=== PATIENT | male | born 1985 | race Caucasian/White ===

== ENCOUNTER → 2020-04-21 12:50 | Outpatient (BNVA) | payer MEDICAID, SELFPAY | PROVIDERS: Visit Provider Psychiatry & Neurology Psychiatry | DX: F25.0 Schizoaffective disorder, bipolar type (principal); F41.9 Anxiety disorder, unspecified; Z72.820 Sleep deprivation; F11.19 Opioid abuse with unspecified opioid-induced disorder; F15.20 Other stimulant dependence, uncomplicated | CPT/HCPCS: 90792 ==

== ENCOUNTER → 2020-04-23 14:39 | Outpatient (BNVA) | payer MEDICAID, SELFPAY | PROVIDERS: Visit Provider Internal Medicine | DX: E10.319 Type 1 diabetes mellitus with unspecified diabetic retinopathy without macular edema (principal); E10.40 Type 1 diabetes mellitus with diabetic neuropathy, unspecified; E10.65 Type 1 diabetes mellitus with hyperglycemia; Z79.4 Long term (current) use of insulin; E16.0 Drug-induced hypoglycemia without coma; T38.3X5A Adverse effect of insulin and oral hypoglycemic [antidiabetic] drugs, initial encounter; E78.5 Hyperlipidemia, unspecified | CPT/HCPCS: 99204 ==

== ENCOUNTER 2020-04-23 15:34 | Outpatient (CLI) | payer MEDICAID, SELFPAY ==
[2020-04-23 16:27] LABS: Alanine Aminotransferase 38 U/L (0-41); Albumin Level 4.4 g/dL (3.5-5.2); Alkaline Phosphatase 60 IU/L (40-130); Aspartate Amino Transferase 27 U/L (0-40); Blood Urea Nitrogen 20 mg/dL (6-20); Calcium 9.4 mg/dL (8.5-10.5); Carbon Dioxide 27 mmol/L (22-29); Chloride 99 mmol/L (98-107); Chol HDL Ratio 6.76 mg/dL (1.0-5.00); Cholesterol 257 mg/dL (0-200); Globulin 2.9 g/dL (1.3-4.6); Glomerular Filtration Rate 68.5 mL/min (90-130); Glucose 320 mg/dL (65-115); HDL Cholesterol 38 mg/dL (60-100); LDL Cholesterol Calculated 156 mg/dL (50-129); LDL HDL Ratio 4.11 RATIO (0.00-3.22); Osmolality Calculated 293 mOsm/kg (285-295); Sodium 134 mmol/L (136-145); Total Bilirubin 0.4 mg/dL (0.15-1.2); Total Protein 7.3 g/dL (6.6-8.7); Triglycerides 314 mg/dL (0-150)
[2020-04-23 16:32] LABS: Anion Gap 12.7 (5-19); Potassium 4.7 mmol/L (3.5-5.1)
[2020-04-23 16:42] LABS: Estmated Average Glucose 206; Hemoglobin A1C 8.8 % (4.0-6.0)
== END 2020-04-23 15:35 | disposition home or self-care (01) ==
LOC: LAB 15:40
PROVIDERS: PCP Family Medicine Adult Medicine; Visit Provider Internal Medicine
DX: E10.65 Type 1 diabetes mellitus with hyperglycemia (principal); E10.69 Type 1 diabetes mellitus with other specified complication; E78.5 Hyperlipidemia, unspecified
CPT/HCPCS: 36415; 80053; 80061; 83036

== ENCOUNTER 2020-04-24 08:06 | Emergency (ER) | payer MEDICAID, SELFPAY ==
--- NOTE | 2020-04-24 08:15 | XR_ITS ---
WS: [id number] Left foot, 3 views, 04/24/2020 Clinical Data: left great toe pain, 1st TP pain Comparison: None. Findings: No fractures or dislocations are seen. No bone destruction or erosion is noted. The joint spaces and soft tissues are normal. XR/XR foot LT min 3V* [id number] Impression: Negative left foot.
--- NOTE | 2020-04-24 08:17 | W.ED.LOWEXIN ---
HPI - Extremity Injury (Lower) General: Chief Complaint: Extremity Injury, Lower Stated Complaint: TOE PAIN Time Seen by Provider: 04/24/20 08:09 History of Present Illness: HPI Narrative: 34-year-old male patient presents to the emergency department with left great toe injury. He reports last night, attempted to kick in a corn out of the way when he kicked the pavement. He reports left great toe pain, blue discoloration to the nail, he is insulin-dependent diabetic with peripheral neuropathy. He reports pain with ambulation. MD complaint: foot injury (left) Onset (ago): hour(s) (12) Injury: Left: toes Place: home and other (Currently living at [facility]) Severity: moderate Severity scale (1-10): 5 Relieving factors: rest Exacerbating factors: weight bearing and movement Context: direct blow Other symptoms: none Review of Systems General: Reports: 10 or more systems reviewed and unremarkable except in HPI and below Const: Denies: fever(s), chills or diaphoresis Eyes: Denies: blurry vision or eye redness ENMT: Denies: throat pain, dental pain or disequilibrium Card: Denies: chest pain, palpitations or irregular heart rhythm Resp: Denies: dyspnea, productive cough, non-productive cough or wheezing GI: Denies: abdominal pain, nausea or vomiting : Denies: dysuria Musc: Denies: back pain Skin/Breast: Reports: skin tenderness (left great toe) and changes in skin color (left great toe); Denies: rash or pruritus Neuro: Denies: headache(s), weakness in extremities or behavioral changes Benigno/Lymph: Denies: easy bruising FOR[facility], [facility] ED PFSH: Medical History (Updated 04/24/20 @ 08:22 by YI Nunn) Bipolar affective, depress, unspec Chronic back pain Diabetes mellitus type 1, uncontrolled, insulin dependent Diabetes, type I Diabetic neuropathic arthropathy Fatty liver Heroin overdose 05/2018 Herpes exposure Hyperlipidemia due to type 1 diabetes mellitus Insomnia Methamphetamine abuse, episodic 07/2018 Methamphetamine use disorder, severe Opioid abuse with opioid-induced disorder Problems related to lack of adequate sleep Schizoaffective disorder, bipolar type Staph skin infection 09/2018 Tobacco abuse disorder Surgical History Hx of appendectomy Hx of hernia repair Family History Other COPD (chronic obstructive pulmonary disease) Cancer Diabetes Psychiatric illness Social History Smoking and tobacco status: current every day smoker cigarettes Years cigarettes smoked: 24 [ Other cigarette details: currently smoking 3 cigarettes a day. former 4 PPD. ] Second hand smoke exposure: Yes Alcohol intake: never Counseling given: Yes Adopted: No Caregiver/support person: Yes Lives independently: Yes Housing: Homeless Current occupational status: unemployed Current gender identity: Male Special melissa needs: No Physical Exam Const: COMMON NORMALS: no acute distress, patient oriented x3, healthy appearing and alert GENERAL APPEARANCE: cooperative, comfortable and well hydrated HENMT: COMMON NORMALS: normocephalic, Normal external nose present and moist oral mucous membranes HEAD & SCALP: normocephalic NOSE: Normal external nose present Eye: COMMON NORMALS: Equal, round and reactive pupils present and EOMs intact bilaterally GENERAL EYE: appearance normal, both eyes and all related structures PUPIL: Yes Equal, round and reactive pupils present Neck/C-Spine: COMMON NORMALS: full ROM and no lymphadenopathy GENERAL: Yes normal visual inspection and Yes trachea midline CERVICAL SPINE: Yes cervical ROM normal Lymph: LYMPHATIC: no lymphadenopathy noted Chest: COMMONS NORMALS: normal inspection of the chest Resp: COMMON NORMALS: normal respiratory effort and clear to auscultation bilaterally AUSCULTATION: clear to auscultation bilaterally Cardio: COMMON NORMALS: regular rhythm, S1 normal heart sound present and S2 normal heart sound present RHYTHM: regular rhythm HEART SOUNDS: S1 normal heart sound present and S2 normal heart sound present GI: COMMON NORMALS: Soft to palpation and non-tender INSPECTION: Yes normal to inspection PALPATION: Yes Soft to palpation : COMMON NORMALS: Yes no CVA tenderness BLADDER/KIDNEY EXAM: Yes no CVA tenderness Back/Pelvis: COMMON NORMALS: no CVA tenderness and thoracic and lumbar spine normal to inspection Extremity: COMMON NORMALS: capillary refill normal GENERAL: Yes normal exam except as noted LEFT LOWER EXTREMITY: Yes foot & digits Left foot and digits: Yes inspection (edema and swelling to the left great toe), Yes palpation (pain with palpation - no open wounds), Yes ROM (Dorsi flexion and extension noted) and Yes neurovascular exam (Distally intact to the left great toe) EXTREMITY IMAGE (FRONT): 1. Subungual hematoma noted. Nail plate intact, nail intact. Negative drainage Neuro: COMMON NORMALS: patient oriented x3 and no focal motor deficits SENSORIUM/ORIENTATION: Yes alert Psych: COMMON NORMALS: mental status grossly normal, Normal thought process present and cooperative ACTIVITY/MOTOR BEHAVIOR: Yes appropriate eye contact THOUGHT PROCESS: Normal thought process present Skin: COMMON NORMALS: no rashes or lesions noted and turgor normal GENERAL SKIN EXAM: no rashes or lesions noted and turgor normal Procedures Nail Trephination Time out: Yes Location (finger): left Location (toes): first digit Sterile prep: betadine Method of drainage: nail cautery Procedure successful: Yes Patient tolerated procedure: well Complications: other (none) Course ED course: 34-year-old male patient presents to the emergency department with left great toe pain status post contusion injury. Subungual hematoma noted of the left great toe, nail was cauterized, significant amount of blood expressed, this did help with pain, reports toe felt better after procedure, nail was wrapped with Kerlix and bandage. He is requesting note to keep the left foot elevated to help with swelling and pain as he lives at [facility]. X-ray of the left foot was negative for fracture. He will follow-up with podiatry, return to the emergency room if he develops concerning symptoms such as increased redness of the great toe, red streaking, left foot swelling with redness or red streaking appearance. Questions were answered, results of x-ray discussed with the patient as well as plan of care. Vital Signs: Vital signs: Vital Signs Temperature 97.8 F 04/24/20 08:47 Pulse Rate 86 04/24/20 08:48 Respiratory Rate 18 04/24/20 08:47 Blood Pressure 127/88 04/24/20 08:47 Pulse Oximetry 97 04/24/20 08:47 MDM - Extremity Injury (Lower) Imaging Data^: Xray Ortho: Radiologist's impression: [address] [place] [address] XRay Report Signed Patient: [facility] Unit #: [id number] : [id number] Age/Sex: 34 / M ADM Date: 04/24/20 Loc: ER Room/Bed: Attending Dr: Ordering Provider/Ordering MD: Joanne Stratton Date of Service: 04/24/20 Procedure(s): XR foot LT min 3V* [id number] Accession Number(s): [id number] Report Number: [id number] WS: [id number] Left foot, 3 views, 04/24/2020 Clinical Data: left great toe pain, 1st TP pain Comparison: None. Findings: No fractures or dislocations are seen. No bone destruction or erosion is noted. The joint spaces and soft tissues are normal. XR/XR foot LT min 3V* [id number] Impression: Negative left foot. Dictated By: Makayla Emmanuel MD Signed By: Makayla Emmanuel MD Signed Date/Time: 04/24/20839 DD/ 8 Discharge Plan Discharge Patient Disposition: Home Clinical Impression: Subungual hematoma Toe contusion Qualifiers: Encounter type: initial encounter Toe: great toe Damage to nail status: with damage Laterality: left Qualified Code(s): S90.212A - Contusion of left great toe with damage to nail, initial encounter Condition: Stable Prescriptions: No Action hydroxyzine HCl 50 mg tablet 50 mg PO .hs Qty: 30 RF: 1 gabapentin 600 mg tablet 600 mg PO TID Qty: 90 RF: 1 (DME) Diabetic Diet See Rx Instructions .Route .MEDSUPPLY Qty: 1 RF: 0 furosemide 20 mg tablet 10 mg PO QAM Qty: 30 RF: 1 lisinopril 10 mg tablet 10 mg PO DAILY Qty: 30 RF: 1 meloxicam 15 mg tablet 15 mg PO DAILY Qty: 30 RF: 1 venlafaxine 150 mg capsule,extended release 24hr 150 mg PO DAILY Qty: 30 RF: 1 Regular Insulin See Rx Instructions .ROUTE .COMPLEX Qty: 100 RF: 0 hydroxyzine pamoate 50 mg capsule 50 mg PO BID RF: 0 insulin aspart U-100 [Novolog Flexpen U-100 Insulin] 100 unit/mL (3 mL) insulin pen 10 unit SUBCUT TID RF: 0 metoprolol succinate 50 mg tablet extended release 24 hr 50 mg PO DAILY RF: 0 gabapentin 300 mg capsule 300 mg PO DAILY RF: 0 quetiapine 400 mg tablet 400 mg PO .Hs RF: 0 insulin glargine U-300 conc 300 unit/mL (3 mL) insulin pen 60 unit SUBCUT DAILY Qty: 6 RF: 1 venlafaxine 37.5 mg tablet 37.5 mg PO DAILY RF: 0 chlorpromazine 100 mg tablet 100 mg PO TID 30 Days Qty: 90 RF: 3 trazodone 100 mg tablet 200 mg PO .hs 30 Days Qty: 60 RF: 3 Discharge Orders: Discharge Order (Routine); Ordered 04/24/20 Ordered By: Joanne Stratton Referrals: Ryan Bond MD [Primary Care Provider] - Discharge Diet: Usual diet and Diabetic Discharge Activity: Limit activity as instructed Patient Instructions: Subungual Hematoma (ED), Contusion in Adults (ED) Activity Restrictions/Additional Instructions: Follow-up with podiatry as recommended Monitor left great toe for signs and symptoms of infection such as increased redness, increased pain or drainage Keep the left great toe clean and dry, avoid submersion into water, you may change the dressing as needed for drainage Return to the emergency department if you develop redness, foul odor from the toe, red streaking of the left foot, swelling redness of the left foot Wear postop shoe as this will help with pain -wear until follow-up with podiatry Keep the left extremity elevated as this will help with pain and swelling. You may continue Tylenol as needed for pain Stand Alone Forms: Work/School Release Coding Level of Care Code ED [employer] Super[employer] for [employer] Exam Comprehensive
[2020-04-24 08:41] VITALS: BP 127/88; PULSE 99; RESP 18; TEMP 36.6; O2SAT 96; BMI 31.1
[2020-04-24 08:47] VITALS: BP 127/88; PULSE 87; RESP 18; TEMP 36.6; O2SAT 97
[2020-04-24 08:48] VITALS: PULSE 86
[2020-04-24 09:23] VITALS: BP 123/86; PULSE 95; RESP 18; TEMP 36.6; O2SAT 96
--- NOTE | 2020-04-24 10:43 | DCPLANNER ---
a p manager had message to schedule a follow up appointment for patient with ortho. a p manager called the ortho clinic, spoke with Venus, gave clinic patients information. a p manager was told that patients information would be printed and reviewed. Clinic will call patient with appointment information.
--- NOTE | 2020-04-28 16:07 | DCPLANNER ---
Patient has a follow up appointment scheduled for April at 9:[address] Minaya at ortho. Clinic will call patient with appointment information.
--- NOTE | 2020-05-15 11:51 | DCPLANNER ---
Patient had a follow up appointment scheduled for 05.12.20 with ortho - patient did attend appointment.
== END 2020-04-24 09:26 | disposition home or self-care (01) ==
LOC: ER 08:29
PROVIDERS: Emergency Provider Nurse Practitioner Family; PCP Family Medicine Adult Medicine
DX: S90.212A Contusion of left great toe with damage to nail, initial encounter (principal); Z79.899 Other long term (current) drug therapy; E10.40 Type 1 diabetes mellitus with diabetic neuropathy, unspecified; E78.5 Hyperlipidemia, unspecified; F17.210 Nicotine dependence, cigarettes, uncomplicated; W22.09XA Striking against other stationary object, initial encounter
CPT/HCPCS: 11740; 12345; 73630; 99281; 99283; A6446; E0114

== ENCOUNTER → 2020-05-15 11:21 | Outpatient (BNVA) | payer MEDICAID, SELFPAY | PROVIDERS: PCP Family Medicine Adult Medicine; Visit Provider Psychiatry & Neurology Psychiatry | DX: F25.0 Schizoaffective disorder, bipolar type (principal); Z72.820 Sleep deprivation; F15.20 Other stimulant dependence, uncomplicated; F11.19 Opioid abuse with unspecified opioid-induced disorder; F41.9 Anxiety disorder, unspecified | CPT/HCPCS: 99213 ==

== ENCOUNTER → 2020-05-21 12:55 | Outpatient (BNVA) | payer MEDICAID, SELFPAY | PROVIDERS: PCP Family Medicine Adult Medicine; Visit Provider Internal Medicine | DX: E10.319 Type 1 diabetes mellitus with unspecified diabetic retinopathy without macular edema (principal); E10.40 Type 1 diabetes mellitus with diabetic neuropathy, unspecified; E10.65 Type 1 diabetes mellitus with hyperglycemia; Z79.4 Long term (current) use of insulin; E16.0 Drug-induced hypoglycemia without coma; T38.3X5A Adverse effect of insulin and oral hypoglycemic [antidiabetic] drugs, initial encounter; E78.5 Hyperlipidemia, unspecified | CPT/HCPCS: 99214 ==